=== PATIENT | female | born 1950 | race Caucasian/White ===

== ENCOUNTER 2020-11-12 12:03 | Emergency (ER) | payer MEDICARE, OTHER ==
[~2020-11-12] VITALS: Ht 160 cm; Wt 89.8 kg
[2020-11-12] MEDS ORDERED: METF-877 PO (12:43)
[2020-11-12] MEDS ORDERED: FLUO40CA PO (12:43)
[2020-11-12] MEDS ORDERED: NORV5TAB PO (12:43)
[2020-11-12] MEDS ORDERED: ROSU40TA4 PO (12:43)
[2020-11-12] MEDS ORDERED: ELIQ5TAB PO (12:43)
[2020-11-12] MEDS ORDERED: GABA-282 PO (12:43)
[2020-11-12] MEDS ORDERED: SUPECAP7 PO (12:43)
[2020-11-12] MEDS ORDERED: METO1TAB32 PO (12:43)
[2020-11-12] MEDS ORDERED: GLIP10TA PO (12:43)
[2020-11-12] MEDS ORDERED: ROPI1TAB3 PO (12:43)
[2020-11-12] MEDS ORDERED: PLAV1TAB2 PO (12:43)
[2020-11-12] MEDS ORDERED: PAME10CA PO (12:43)
[2020-11-12] MEDS ORDERED: EZET1TAB96 PO (12:43)
[2020-11-12 12:46] LABS: BASO # 0.1 10^3/uL (0.0-0.2); BASO % 0.9 % (0.0-1.0); EOS # 0.1 10^3/uL (0.0-0.5); EOS % 0.7 % (0.0-3.0); HEMATOCRIT 44.1 % (36.0-47.0); HEMOGLOBIN 14.7 g/dl (12.0-15.5); LYMPH # 3.7 10^3/uL (1.5-5.0); LYMPH % 38.8 % (24.0-44.0); MEAN CORPUSCULAR HGB CONC 33.3 g/dl (32.0-36.5); MONO # 0.8 10^3/uL (0.0-0.8); MONO % 8.2 % (2.0-8.0); NEUTROPHILS # 4.9 10^3/uL (1.5-8.5); NEUTROPHILS % 51.2 % (36.0-66.0); PLATELET COUNT, AUTOMATED 288 10^3/uL (150-450); WHITE BLOOD COUNT 9.6 10^3/uL (4.0-10.0)
[2020-11-12 13:18] LABS: ALBUMIN 3.9 GM/DL (3.2-5.2); ALT/SGPT 30 U/L (12-78); BILIRUBIN,DIRECT 0.2 MG/DL (0.0-0.2); BILIRUBIN,TOTAL 0.5 MG/DL (0.2-1.0); BLOOD UREA NITROGEN 16 MG/DL (7-18); CALCIUM LEVEL 9.1 MG/DL (8.8-10.2); CARBON DIOXIDE LEVEL 26 MEQ/L (21-32); CHLORIDE LEVEL 104 MEQ/L (98-107); CK-MB VALUE MASS 7.7 NG/ML (<3.6); CPK CREATINE PHOSPHOKINASE 1445 U/L (26-192); CREATININE FOR GFR 0.83 MG/DL (0.55-1.30); GLOMERULAR FILTRATION RATE > 60.0 (>45); GLUCOSE, FASTING 86 MG/DL (70-100); LIPASE 118 U/L (73-393); MB/CK RELATIVE INDEX 0.53 (< OR =4); POTASSIUM SERUM 4.1 MEQ/L (3.5-5.1); SODIUM LEVEL 138 MEQ/L (136-145); TOTAL PROTEIN 7.9 GM/DL (6.4-8.2); TROPONIN I < 0.02 NG/ML (< 0.10)
[2020-11-12 15:38] LABS: CK-MB VALUE MASS 8.2 NG/ML (<3.6); CPK CREATINE PHOSPHOKINASE 1598 U/L (26-192); MB/CK RELATIVE INDEX 0.51 (< OR =4); TROPONIN I < 0.02 NG/ML (< 0.10)
[2020-11-12] MEDS ORDERED: ISOVUE-370 76% 100ML VIAL As Ordered ONE (15:49)
[2020-11-12 18:45] VITALS: BP 150/77
== END 2020-11-12 19:06 | disposition home or self-care (01) ==
LOC: M ED 12:03
DX: R07.89 Other chest pain (principal); I48.91 Unspecified atrial fibrillation; I25.10 Atherosclerotic heart disease of native coronary artery without angina pectoris; I10 Essential (primary) hypertension; D86.9 Sarcoidosis, unspecified; Z88.8 Allergy status to other drugs, medicaments and biological substances; Z79.899 Other long term (current) drug therapy; Z79.01 Long term (current) use of anticoagulants
CPT/HCPCS: 36415; 71045; 71275; 80048; 80076; 82550; 82553; 83690; 84484; 85025; 93005; 93041; 94760; 99285; Q9967